=== PATIENT | female | born 1950 | race Caucasian/White ===

== ENCOUNTER → 2024-02-12 | Outpatient (CLI) | payer MEDICARE, SELFPAY ==
[2024-02-12 08:57] LABS: Collection Type, Urine Clean Catch
[2024-02-12 09:13] LABS: Basophils # (Auto) 0.1 Thou/mm3 (0.0-0.2); Basophils % (Auto) 1 % (0-2.5); Eosinophils # (Auto) 0.2 Thou/mm3 (0.0-0.5); Eosinophils % (Auto) 3 % (0-10); Hematocrit 35.1 % (36.0-46.0); Hemoglobin 11.7 g/dL (12.0-16.0); Immature Granulocytes % (Auto) 1 % (0-0); Immature Granulocytes Auto 0.05 Thou/mm3 (0.00-0.00); Lymphocytes # (Auto) 2.7 Thou/mm3 (1.0-4.8); Lymphocytes % (Auto) 39 % (10-50); Mean Corpuscular HGB Conc 33.3 g/dl (31.0-37.0); Mean Corpuscular Volume 87 fL (80-100); Monocytes # (Auto) 0.4 Thou/mm3 (0.0-0.8); Monocytes % (Auto) 6 % (0-12); Neutrophils # (Auto) 3.5 Thou/mm3 (1.8-7.7); Neutrophils % (Auto) 52 % (37-80); Nucleated Red Blood Cell % 0 /100 WBC (0); Platelet Count 268 Thou/mm3 (140-440); RDW Standard Deviation 39.3 fL (36.4-46.3); Red Blood Count 4.03 Miln/mm3 (4.00-5.20); White Blood Count 6.9 Thou/mm3 (3.6-11.0)
[2024-02-12 09:24] LABS: Bacteria,Urine 4+; Bilirubin,Urine Negative (Negative); Blood,Urine Trace (Negative); Color,Urine Lt-Yellow (Lt Yel-Yel); Glucose, Urine Negative (Negative); Ketones,Urine Negative (Negative); Leukocyte Esterase,Urine Positive (Negative); Nitrite,Urine Negative (Negative); Protein,Urine Trace (Neg - Trace); RBC,Urine 4 /hpf (0-3); Specific Gravity,Urine 1.013 (1.001-1.035); Squamous Epithelial Cell,Urine 1 /hpf (0-5); Urobilinogen,Urine Negative mg/dL (0.0-1.0); WBC,Urine 209 /hpf (0-5)
[2024-02-12 09:25] LABS: Clarity,Urine Hazy (Clear/Hazy); Culture Indicated,Urine Yes
[2024-02-12 09:27] LABS: Glucose Estimated Average 146 mg/dL (80-131); Hemoglobin A1C 6.7 % Hgb (4.8-6.0)
[2024-02-12 09:31] LABS: Alanine Aminotransferase 12 U/L (10-49); Albumin, Serum 4.7 gm/dL (3.4-4.8); Alkaline Phosphatase 48 U/L (46-116); Anion Gap 9 (7-16); Aspartate Amino Transferase 13 U/L (0-34); BUN/Creatinine Ratio 26 Ratio (12-20); Bilirubin,Total 0.6 mg/dL (0.3-1.2); Blood Urea Nitrogen 31 mg/dL (9-23); Calcium 9.9 mg/dL (8.3-10.6); Calcium (Corrected) 9.9 mg/dL (8.5-10.1); Carbon Dioxide 24.2 mMol/L (20.0-31.0); Cardiac Risk Estimate 4.9 RATIO (3.7-5.6); Chloride 105 mMol/L (98-107); Cholesterol 272 mg/dL (132-200); Creatinine (Component) 1.2 mg/dL (0.6-1.3); Globulin 2.3 gm/dL (2.3-3.5); Glucose 155 mg/dL (74-106); HDL Cholesterol 55 mg/dL (40-60); LDL Cholesterol,Calculated 165 mg/dL (0-130); Osmolality,Calculated 285 (275-295); Potassium 5.2 mMol/L (3.4-5.1); Sodium 138 mMol/L (136-145); Thyroid Stimulating Hormone 1.59 uIU/mL (0.55-4.78); Triglycerides 262 mg/dL (30-150); Vitamin B12 313 pg/mL (211-911); Vitamin D 25 Hydroxy Total 33.9 ng/mL (7.3-40.2); eGFR 48 See Note
[2024-02-12 09:43] LABS: Creatinine MALB Rnd Ur 74 mg/dL (30-125); Microalbumin Creat Ratio 126 mg/gCrea (<30); Microalbumin, Random Urine 93 mg/L (0-300)
== END | disposition home or self-care (01) ==
LOC: COPL 08:27
PROVIDERS: PCP Family Medicine; Referring Provider Physician Assistant; Visit Provider Physician Assistant
DX: E11.9 Type 2 diabetes mellitus without complications (principal); I10 Essential (primary) hypertension; E55.9 Vitamin D deficiency, unspecified; E78.5 Hyperlipidemia, unspecified
CPT/HCPCS: 36415; 80053; 80061; 81001; 82043; 82306; 82570; 82607; 83036; 84443; 85025; 87077; 87086; 87186

== ENCOUNTER → 2024-03-03 | Outpatient (CLI) | payer MEDICARE, SELFPAY ==
[2024-03-03 12:50] LABS: Alanine Aminotransferase 21 U/L (10-49); Albumin, Serum 4.5 gm/dL (3.4-4.8); Alkaline Phosphatase 44 U/L (46-116); Anion Gap 8 (7-16); Aspartate Amino Transferase 18 U/L (0-34); BUN/Creatinine Ratio 19 Ratio (12-20); Bilirubin,Total 0.3 mg/dL (0.3-1.2); Blood Urea Nitrogen 23 mg/dL (9-23); Carbon Dioxide 24.6 mMol/L (20.0-31.0); Chloride 109 mMol/L (98-107); Creatinine (Component) 1.2 mg/dL (0.6-1.3); Globulin 2.2 gm/dL (2.3-3.5); Glucose 110 mg/dL (74-106); Osmolality,Calculated 287 (275-295); Potassium 5.3 mMol/L (3.4-5.1); Sodium 142 mMol/L (136-145); Total Protein 6.7 gm/dL (5.7-8.2); eGFR 48 See Note
== END | disposition home or self-care (01) ==
LOC: COPL 11:15
PROVIDERS: PCP Physician Assistant; Referring Provider Physician Assistant; Visit Provider Physician Assistant
DX: E87.5 Hyperkalemia (principal)
CPT/HCPCS: 36415; 80053

== ENCOUNTER → 2024-03-06 | Outpatient (CLI) | payer MEDICARE, SELFPAY ==
[2024-03-06 15:59] LABS: Collection Type, Urine Clean Catch
[2024-03-06 17:20] LABS: Bilirubin,Urine Negative (Negative); Blood,Urine Negative (Negative); Clarity,Urine Clear (Clear/Hazy); Color,Urine Lt-Yellow (Lt Yel-Yel); Glucose, Urine Negative (Negative); Ketones,Urine Negative (Negative); Leukocyte Esterase,Urine Negative (Negative); Nitrite,Urine Negative (Negative); PH,Urine 5.5 (5.0-7.0); Protein,Urine Negative (Neg - Trace); RBC,Urine 1 /hpf (0-3); Specific Gravity,Urine 1.013 (1.001-1.035); Squamous Epithelial Cell,Urine 1 /hpf (0-5); Urobilinogen,Urine Negative mg/dL (0.0-1.0); WBC,Urine 3 /hpf (0-5)
== END | disposition home or self-care (01) ==
LOC: SLDO 15:46
PROVIDERS: PCP Physician Assistant; Referring Provider Physician Assistant; Visit Provider Physician Assistant
DX: N39.0 Urinary tract infection, site not specified (principal)
CPT/HCPCS: 81001; 87086

== ENCOUNTER → 2024-03-24 | Outpatient (CLI) | payer MEDICARE, SELFPAY ==
[2024-03-24 14:42] LABS: Alanine Aminotransferase 22 U/L (10-49); Albumin, Serum 4.4 gm/dL (3.4-4.8); Albumin/Globulin Ratio 1.9 (1.2-2.2); Alkaline Phosphatase 43 U/L (46-116); Anion Gap 12 (7-16); Aspartate Amino Transferase 22 U/L (0-34); BUN/Creatinine Ratio 18 Ratio (12-20); Bilirubin,Total 0.7 mg/dL (0.3-1.2); Blood Urea Nitrogen 20 mg/dL (9-23); Calcium 10.1 mg/dL (8.3-10.6); Calcium (Corrected) 10.1 mg/dL (8.5-10.1); Carbon Dioxide 25.1 mMol/L (20.0-31.0); Chloride 106 mMol/L (98-107); Creatinine (Component) 1.1 mg/dL (0.6-1.3); Globulin 2.3 gm/dL (2.3-3.5); Glucose 97 mg/dL (74-106); Osmolality,Calculated 287 (275-295); Sodium 143 mMol/L (136-145); Total Protein 6.7 gm/dL (5.7-8.2); eGFR 53 See Note
== END | disposition home or self-care (01) ==
LOC: COPL 13:33
PROVIDERS: PCP Family Medicine; Referring Provider Physician Assistant; Visit Provider Physician Assistant
DX: E87.5 Hyperkalemia (principal)
CPT/HCPCS: 36415; 80053

== ENCOUNTER → 2024-03-25 | Outpatient (CLI) | payer MEDICARE, SELFPAY ==
--- NOTE | 2024-03-25 12:25 | XR_ITS ---
Examination: Bone densitometry Date and time of exam:March 17, 2024 1241 hours INDICATIONS: Menopause age 45 postmenopausal knee fracture, diabetic, vitamin D 5 years Technique: Lumbar spine and hip total bone mineralization values of an calculated. Peak reference and age match control results have been displayed. Findings: Lumbar spine total bone mineralization is1.031 gm/cm2. This is 0.1 standard deviations below peak reference. This is 2.2 standard deviations above age-matched controls. Hip total bone mineralization is 0.814 gm/cm2 This is 1.1 standard deviations below peak reference. This is 0.7 standard deviations above age-matched controls Impression: There is normal mineralization based on lumbar spine measurements. There is osteopenia based on hip measurements Lumbar mineralization is increased 3.8% compared with September 03, 2003 Hip mineralization is decreased 7.7% compared with September 03, 2003
--- NOTE | 2024-03-25 13:00 | XR_ITS ---
Examination: Screening digital mammography, bilateral Computer aided detection 3-D breast Tomosynthesis, bilateral Date and time of exam: h Indication: Screening Technique: Nonmagnified MLO, CC views of the breasts to been obtained, reconstructed from 3-D Tomosynthesis images. R2 computer aided detection program utilized for evaluation of suspicious masses and/or abnormal calcifications. 3-D Tomosynthesis images obtained. Findings: Scattered areas of fibroglandular density Highly suspicious spiculated 20 mm lesion upper inner left breast 10 mm focal asymmetry 12:00 position left breast anterior depth Impression: BI-RADS Category 0: Incomplete: Need additional imaging evaluation 20 mm highly suspicious spiculated mass inner upper left breast, recommend follow-up spot tomographic views of 10 mm focal asymmetry 12:00 position left breast, recommend follow-up spot tomographic views Recommend bilateral breast sonography follow-up to complete the workup
== END | disposition home or self-care (01) ==
PROVIDERS: PCP Physician Assistant; Referring Provider Physician Assistant; Visit Provider Physician Assistant
DX: Z12.31 Encounter for screening mammogram for malignant neoplasm of breast (principal); N63.22 Unspecified lump in the left breast, upper inner quadrant; N64.89 Other specified disorders of breast; M85.89 Other specified disorders of bone density and structure, multiple sites
CPT/HCPCS: 77063; 77067; 77080

== ENCOUNTER → 2024-04-28 | Outpatient (CLI) | payer MEDICARE, SELFPAY ==
--- NOTE | 2024-04-28 09:00 | XR_ITS ---
Examination: Breast ultrasound complete, bilateral Date and time of exam: April 28, 2024 0848 hours INDICATIONS: Mammogram March 17, 2024 spiculated mass inner upper left breast Technique: Real-time grayscale ultrasonographic imaging bilateral breasts, including all 4 quadrants as well as nipple retroareolar and axillary regions. Findings: Sonographic images right breast No cystic or solid mass Sonographic images left breast 5:00 oval mass indistinct margins 9 x 5 x 8 mm 10:00 oval mass within wide spiculated margins 17 x 18 x 17 mm IMPRESSION: BI-RADS Category 4: Suspicious for malignancy Suspicious masses 5 and 10:00 position left breast, biopsy both nodules is needed to exclude breast carcinoma, these nodules are amenable to ultrasound-guided breast biopsy for diagnosis
--- NOTE | 2024-04-28 10:00 | XR_ITS ---
Examination: Diagnostic digital mammography, unilateral, left Computer aided detection 3-D breast Tomosynthesis, unilateral Date and time of exam: April 28, 2024 0910 hours INDICATIONS: Mammogram March 25, 2024 spiculated mass inner upper left breast, 10 mm focal asymmetry 12:00 position left breast Technique: Nonmagnified MLO, CC views of the left breast have been obtained, reconstructed from 3-D Tomosynthesis images. R2 computer aided detection program utilized for evaluation of suspicious masses and/or abnormal calcifications. 3-D Tomosynthesis images obtained. Findings: Scattered areas of fibroglandular density Spiculated mass is confirmed in the inner upper left breast Please see the left breast sonogram report today indicating 10:00 and 5:00 suspicious masses Impression: BI-RADS category 4: Suspicious for malignancy Suspicious masses 10:00 5:00 position left breast, both require biopsy to exclude breast carcinoma These masses are amenable to ultrasound-guided biopsy for diagnosis
== END | disposition home or self-care (01) ==
LOC: CDIM 08:35
PROVIDERS: Referring Provider Physician Assistant; Visit Provider Physician Assistant
DX: R92.342 Mammographic extreme density, left breast (principal); N63.22 Unspecified lump in the left breast, upper inner quadrant; N63.23 Unspecified lump in the left breast, lower outer quadrant
CPT/HCPCS: 76641; 77061; 77065; G0279

== ENCOUNTER → 2024-05-28 | Outpatient (CLI) | payer MEDICARE, SELFPAY ==
[2024-05-28 13:09] LABS: Basophils # (Auto) 0.1 Thou/mm3 (0.0-0.2); Basophils % (Auto) 1 % (0-2.5); Eosinophils # (Auto) 0.1 Thou/mm3 (0.0-0.5); Eosinophils % (Auto) 1 % (0-10); Hematocrit 35.1 % (36.0-46.0); Hemoglobin 11.9 g/dL (12.0-16.0); Immature Granulocytes % (Auto) 1 % (0-0); Immature Granulocytes Auto 0.05 Thou/mm3 (0.00-0.00); Lymphocytes # (Auto) 2.3 Thou/mm3 (1.0-4.8); Lymphocytes % (Auto) 23 % (10-50); Mean Corpuscular HGB Conc 33.9 g/dl (31.0-37.0); Mean Corpuscular Hemoglobin 29.4 pg (25.0-35.0); Mean Corpuscular Volume 87 fL (80-100); Monocytes # (Auto) 0.5 Thou/mm3 (0.0-0.8); Monocytes % (Auto) 5 % (0-12); Neutrophils # (Auto) 6.9 Thou/mm3 (1.8-7.7); Neutrophils % (Auto) 69 % (37-80); Nucleated Red Blood Cell % 0 /100 WBC (0); Platelet Count 279 Thou/mm3 (140-440); RDW Standard Deviation 40.9 fL (36.4-46.3); Red Blood Count 4.05 Miln/mm3 (4.00-5.20)
[2024-05-28 13:20] LABS: Glucose Estimated Average 134 mg/dL (80-131); Hemoglobin A1C 6.3 % Hgb (4.8-6.0)
[2024-05-28 13:28] LABS: Alanine Aminotransferase 18 U/L (10-49); Albumin, Serum 4.5 gm/dL (3.4-4.8); Albumin/Globulin Ratio 1.9 (1.2-2.2); Alkaline Phosphatase 42 U/L (46-116); Anion Gap 9 (7-16); Aspartate Amino Transferase 21 U/L (0-34); BUN/Creatinine Ratio 18 Ratio (12-20); Bilirubin,Total 0.8 mg/dL (0.3-1.2); Blood Urea Nitrogen 22 mg/dL (9-23); Calcium 9.9 mg/dL (8.3-10.6); Calcium (Corrected) 9.9 mg/dL (8.5-10.1); Chloride 107 mMol/L (98-107); Creatinine (Component) 1.2 mg/dL (0.6-1.3); Globulin 2.4 gm/dL (2.3-3.5); Glucose 124 mg/dL (74-106); Osmolality,Calculated 281 (275-295); Sodium 139 mMol/L (136-145); Total Protein 6.9 gm/dL (5.7-8.2); eGFR 48 See Note
== END | disposition home or self-care (01) ==
LOC: COPL 12:24
PROVIDERS: PCP Family Medicine; Referring Provider Registered Nurse; Visit Provider Registered Nurse
DX: E11.9 Type 2 diabetes mellitus without complications (principal); D64.9 Anemia, unspecified
CPT/HCPCS: 36415; 80053; 83036; 85025

== ENCOUNTER → 2024-06-13 | Outpatient (CLI) | payer MEDICARE, SELFPAY ==
[2024-06-13 11:29] LABS: Basophils # (Auto) 0.1 Thou/mm3 (0.0-0.2); Basophils % (Auto) 1 % (0-2.5); Eosinophils # (Auto) 0.2 Thou/mm3 (0.0-0.5); Eosinophils % (Auto) 3 % (0-10); Hematocrit 31.6 % (36.0-46.0); Hemoglobin 10.2 g/dL (12.0-16.0); Immature Granulocytes % (Auto) 1 % (0-0); Immature Granulocytes Auto 0.05 Thou/mm3 (0.00-0.00); Lymphocytes # (Auto) 2.1 Thou/mm3 (1.0-4.8); Lymphocytes % (Auto) 29 % (10-50); Mean Corpuscular HGB Conc 32.3 g/dl (31.0-37.0); Mean Corpuscular Hemoglobin 28.7 pg (25.0-35.0); Mean Corpuscular Volume 89 fL (80-100); Monocytes # (Auto) 0.5 Thou/mm3 (0.0-0.8); Monocytes % (Auto) 7 % (0-12); Neutrophils # (Auto) 4.5 Thou/mm3 (1.8-7.7); Neutrophils % (Auto) 61 % (37-80); Nucleated Red Blood Cell % 0 /100 WBC (0); Platelet Count 263 Thou/mm3 (140-440); RDW Standard Deviation 41.1 fL (36.4-46.3); Red Blood Count 3.56 Miln/mm3 (4.00-5.20); White Blood Count 7.5 Thou/mm3 (3.6-11.0)
[2024-06-13 11:35] LABS: Glucose Estimated Average 140 mg/dL (80-131); Hemoglobin A1C 6.5 % Hgb (4.8-6.0)
[2024-06-13 11:59] LABS: Alanine Aminotransferase 12 U/L (10-49); Albumin, Serum 4.2 gm/dL (3.4-4.8); Alkaline Phosphatase 39 U/L (46-116); Anion Gap 8 (7-16); Aspartate Amino Transferase 15 U/L (0-34); BUN/Creatinine Ratio 17 Ratio (12-20); Bilirubin,Direct 0.1 mg/dL (0.0-0.3); Bilirubin,Total 0.6 mg/dL (0.3-1.2); Blood Urea Nitrogen 20 mg/dL (9-23); Calcium 9.4 mg/dL (8.3-10.6); Carbon Dioxide 26.6 mMol/L (20.0-31.0); Cardiac Risk Estimate 3.4 RATIO (3.7-5.6); Chloride 110 mMol/L (98-107); Cholesterol 216 mg/dL (132-200); Creatinine (Component) 1.2 mg/dL (0.6-1.3); Free T4 (Free Thyroxine) 1.05 ng/dL (0.89-1.76); Glucose 133 mg/dL (74-106); HDL Cholesterol 63 mg/dL (40-60); LDL Cholesterol,Calculated 122 mg/dL (0-130); Osmolality,Calculated 293 (275-295); Potassium 4.4 mMol/L (3.4-5.1); Sodium 145 mMol/L (136-145); Thyroid Stimulating Hormone 1.25 uIU/mL (0.55-4.78); Total Protein 6.5 gm/dL (5.7-8.2); Triglycerides 155 mg/dL (30-150); eGFR 48 See Note
== END | disposition home or self-care (01) ==
LOC: COPL 10:06
PROVIDERS: PCP Physician Assistant; Referring Provider Internal Medicine Cardiovascular Disease; Visit Provider Internal Medicine Cardiovascular Disease
DX: I10 Essential (primary) hypertension (principal); E78.2 Mixed hyperlipidemia; E13.9 Other specified diabetes mellitus without complications; I20.9 Angina pectoris, unspecified
CPT/HCPCS: 36415; 80048; 80061; 80076; 83036; 84439; 84443; 85025

== ENCOUNTER → 2024-07-07 | Outpatient (CLI) | payer MEDICARE, SELFPAY ==
--- NOTE | 2024-07-07 15:45 | XR_ITS ---
Examination: Retroperitoneal ultrasound, complete Technique: Multiple high resolution grayscale images of the retroperitoneum obtained, including kidneys and bladder. Exam date and time:July 07, 2024 1554 hours INDICATIONS: Diagnosis chronic kidney disease stage III FINDINGS: Right kidney 13.2 cm cortex 1.4 cm Advanced right hydronephrosis Left kidney 10.8 cm cortex 2.6 cm Advanced right hydronephrosis Moderate bilateral renal parenchymal scar formation No bladder mass or bladder calculi Bladder prevoid volume 199 cc postvoid volume 83 cc IMPRESSION: Advanced bilateral hydronephrosis CT scan abdomen pelvis without intravenous contrast follow-up
[2024-07-07 17:32] LABS: Basophils % (Auto) 0 % (0-2.5); Eosinophils # (Auto) 0.2 Thou/mm3 (0.0-0.5); Eosinophils % (Auto) 2 % (0-10); Hematocrit 32.5 % (36.0-46.0); Hemoglobin 10.7 g/dL (12.0-16.0); Immature Granulocytes % (Auto) 1 % (0-0); Immature Granulocytes Auto 0.08 Thou/mm3 (0.00-0.00); Lymphocytes # (Auto) 3.1 Thou/mm3 (1.0-4.8); Lymphocytes % (Auto) 32 % (10-50); Mean Corpuscular HGB Conc 32.9 g/dl (31.0-37.0); Mean Corpuscular Hemoglobin 29.2 pg (25.0-35.0); Mean Corpuscular Volume 89 fL (80-100); Monocytes # (Auto) 0.6 Thou/mm3 (0.0-0.8); Monocytes % (Auto) 6 % (0-12); Neutrophils # (Auto) 5.7 Thou/mm3 (1.8-7.7); Neutrophils % (Auto) 59 % (37-80); Nucleated Red Blood Cell % 0 /100 WBC (0); Platelet Count 282 Thou/mm3 (140-440); RDW Standard Deviation 40.6 fL (36.4-46.3); Red Blood Count 3.67 Miln/mm3 (4.00-5.20); White Blood Count 9.8 Thou/mm3 (3.6-11.0)
[2024-07-07 17:48] LABS: Ferritin 133 ng/mL (7.3-270.7); Iron 47 mcg/dL (50-170); Vitamin B12 310 pg/mL (211-911)
== END | disposition home or self-care (01) ==
LOC: CDIM 15:37 → COPL 16:16
PROVIDERS: PCP Physician Assistant; Referring Provider Physician Assistant; Visit Provider Radiology Diagnostic Radiology
DX: N13.30 Unspecified hydronephrosis (principal); D51.9 Vitamin B12 deficiency anemia, unspecified
CPT/HCPCS: 36415; 76770; 82607; 82728; 83540; 85025

== ENCOUNTER → 2024-07-15 | Outpatient (CLI) | payer MEDICARE, SELFPAY ==
--- NOTE | 2024-07-15 09:00 | XR_ITS ---
Examination: CT abdomen and pelvis without contrast. Coronal 3-D reconstructions. Sagittal 2-D reconstructions. Date and time of exam:July 15, 2024 0852 hours Comparison PET/CT scan January 05, 2022 INDICATIONS: Diagnosis malignant melanoma, renal sonogram July 07, 2024 advanced bilateral hydronephrosis CTDI: vol (mGy): 8.03 DLP: (mGycm): 434 Technique: Axial images of the abdomen have been obtained, 3 mm slice thickness Intravenous contrast material has not been administered. Low dose protocols were performed. One or more of the following dose reduction techniques were used; automated exposure control, adjustment of the mA and/or KV according to patient size, use of iterative reconstruction technique. Findings: No focal liver or splenic lesions 4 mm pulmonary nodule left lower lobe No gallstones No pancreatic or adrenal mass Moderate to advanced bilateral hydronephrosis, no renal calculi No ureteral calculi Aorta normal size No abdominal or pelvic significant lymphadenopathy Normal appendix No bowel obstruction or diverticulitis Urinary bladder intact IMPRESSION: Moderate to advanced bilateral hydronephrosis, no renal or ureteral calculi, recommend urology consultation
== END | disposition home or self-care (01) ==
PROVIDERS: PCP Physician Assistant; Referring Provider Physician Assistant; Visit Provider Physician Assistant
DX: N13.39 Other hydronephrosis (principal)
CPT/HCPCS: 74176

== ENCOUNTER → 2024-08-14 | Outpatient (BNVA) | payer MEDICARE, SELFPAY | END | disposition home or self-care (01) | PROVIDERS: PCP Physician Assistant; Referring Provider Physician Assistant; Visit Provider Urology | DX: N81.10 Cystocele, unspecified (principal); N13.30 Unspecified hydronephrosis; I12.9 Hypertensive chronic kidney disease with stage 1 through stage 4 chronic kidney disease, or unspecified chronic kidney disease; E11.22 Type 2 diabetes mellitus with diabetic chronic kidney disease; N18.30 Chronic kidney disease, stage 3 unspecified; I25.10 Atherosclerotic heart disease of native coronary artery without angina pectoris; E66.9 Obesity, unspecified; Z68.26 Body mass index [BMI] 26.0-26.9, adult; E78.00 Pure hypercholesterolemia, unspecified; K21.9 Gastro-esophageal reflux disease without esophagitis | CPT/HCPCS: 81003; 99203; 99212; G0463 ==

== ENCOUNTER 2024-09-10 07:20 | Day surgery (SDC) | payer MEDICARE, SELFPAY ==
--- NOTE | 2024-09-09 09:55 | EKG_ITS ---
[facility] Test Date: 2024-09-09 Pat Name: SG ALFREDO Department: Room: - Gender: Female Extension Course Coordinator: ROM : 1950 Requested By: Jesus Alberto Reis Order Number: [id number] Reading MD: Jesus Alberto Reis Measurements Intervals [place] Rate: 66 P: 52 DE: 143 QRS: -2 QRSD: 88 T: -20 QT: 368 QTc: 386 Interpretive Statements SINUS RHYTHM NONSPECIFIC ST & T-WAVE ABNORMALITY Compared to ECG 06/21/2017 09:37:34 No significant changes /store/S0/[id number]/ecg/[id number].pdf
[2024-09-09 10:46] VITALS: BMI 28.8
[2024-09-09 12:35] LABS: Alanine Aminotransferase 14 U/L (10-49); Albumin, Serum 4.4 gm/dL (3.4-4.8); Albumin/Globulin Ratio 1.7 (1.2-2.2); Alkaline Phosphatase 40 U/L (46-116); Anion Gap 9 (7-16); Aspartate Amino Transferase 20 U/L (0-34); BUN/Creatinine Ratio 15 Ratio (12-20); Bilirubin,Total 0.8 mg/dL (0.3-1.2); Blood Urea Nitrogen 18 mg/dL (9-23); Calcium 9.8 mg/dL (8.3-10.6); Calcium (Corrected) 9.8 mg/dL (8.5-10.1); Carbon Dioxide 25.1 mMol/L (20.0-31.0); Chloride 108 mMol/L (98-107); Creatinine (Component) 1.2 mg/dL (0.6-1.3); Estimated Creatinine Clearance 38.0 mL/min (>60); Globulin 2.6 gm/dL (2.3-3.5); Glucose 144 mg/dL (74-106); Osmolality,Calculated 288 (275-295); Potassium 4.4 mMol/L (3.4-5.1); Sodium 142 mMol/L (136-145); Total Protein 7.0 gm/dL (5.7-8.2); eGFR 48 See Note
[2024-09-10] VITALS (8 sets, daily range): BP systolic 133–158; BP diastolic 69–95; PULSE 65–89; RESP 12–19; TEMP 36.4–36.8; O2SAT 95–100; BMI 28.7
[2024-09-10] MEDS: RINGERS LACTATED 1000 ML 1,000 ML 20 ML IV (08:16)
--- NOTE | 2024-09-10 09:00 | XR_ITS ---
Examination: Bilateral retrograde pyelograms with without KUB Fluoroscopy 3 spot fluoroscopic abdomen films Date and time: September 10, 2024 1143 hours INDICATIONS: Diagnosis malignant melanoma, moderate to advanced bilateral hydronephrosis on CT study of the abdomen and pelvis July 15, 2024 TECHNIQUE AND FINDINGS: 3 spot fluoroscopic abdomen films obtained Contrast noted in dilated ureters Fluoroscopy 19.7 seconds radiation dose 4.97 milligray IMPRESSION: Bilateral retrograde study as above
--- NOTE | 2024-09-10 11:54 | ESOP_ITS ---
Date of Procedure 09/10/24 Pre Op Diagnosis Complete vaginal vault prolapse, chronic renal insufficiency Post Op Diagnosis Same plus bilateral hydronephrosis Procedure Cystoscopic examination bilateral retrograde pyelogram placement of vaginal pessary Findings Vaginal vault prolapse and bilateral hydronephrosis Procedure Description This is a 74-year-old female she was seen by me in urology office she has complete vaginal vault prolapse and renal insufficiency she was recommended above procedure procedure and complications were discussed with the patient in great detail informed consent is obtained Patient was brought to the operating room in a satisfactory condition after appropriate premedication she was appropriately identified by surgeon and operating room staff site scope and indications of the procedure were reconfirmed with the patient. General anesthesia was given uneventfully patient was positioned in a dorsolithotomy position parts were prepped and draped in the usual sterile fashion 2% lidocaine was instilled into the urethra after I was able to reduce the cystocele rectocele. 21 cystoscope was used to do the cy stoscopic examination. At this time patient received perioperative antibiotics. Examination of bladder in all the quadrant was carried out there were coarse bladder trabeculation. Both ureteral orifices were identified. I passed the open-ended Pollick catheter on the left side under fluoroscopic examination retrograde pyelogram was performed this revealed hydronephrosis with dilated ureter up to the bladder left side similar procedure was repeated on the opposite side and there was a hydroureteronephrosis right side. This was as a result of complete vaginal vault prolapse which was causing double-J kinking of the ureters and causing your ureteral obstruction. Next instrument was withdrawn gently and vaginal pessary was placed patient after having tolerated the procedure well was discharged to the recovery room in a satisfactory condition to be followed in urology office Anesthesia GETA Pathology / specimen None Estimated Blood Loss 0.2 Condition Stable Disposition PACU Surgeon Anne Hart MD Surgical Staff Operation Date: 09/10/24 09:30 <No data on this case meets the specified criteria>
--- NOTE | 2024-09-10 12:02 | SUR.PHASEI ---
pt arrived to PACU via gurney drowsy but arouses to voice, breathing unlabored, report from Sonido LAL and Dr Cho
--- NOTE | 2024-09-10 12:20 | SUR.PHASEII ---
1220 Report received from Yumiko Velasquez RN
--- NOTE | 2024-09-10 12:20 | SUR.PHASEII ---
report to Yumiko Singletary RN
--- NOTE | 2024-09-10 12:30 | SUR.PHASEII ---
1230 Patient had incontinent episode, patient linen clean, gown changed and pericare provided to patient, purewick in place
--- NOTE | 2024-09-10 13:09 | SUR.PHASEII ---
1309 Patient meets discharge criteria from recovery, awake and alert, breathing unlabored, vital signs stable, denies pain, drinking water; denies nausea, voided in the restroom prior to discharge, assisted with dressing into her clothing by this play writer, discharge instructions given to patient and patients , signed discharge instructions. Patient given all her belongings prior to discharge, transported via wheelchair and left in a private vehicle.
== END 2024-09-10 13:09 | disposition home or self-care (01) ==
PROVIDERS: Anesthesiology; PCP Family Medicine; Referring Provider Urology; Visit Provider Urology
PROC: 0TJB8ZZ Inspection of Bladder, Via Natural or Artificial Opening Endoscopic (ICD-10-PCS; CPT 52000; principal; 2024-09-10 09:15)
DX: N81.10 Cystocele, unspecified (principal); N18.9 Chronic kidney disease, unspecified; N13.30 Unspecified hydronephrosis; Z01.810 Encounter for preprocedural cardiovascular examination
CPT/HCPCS: 52005; 57160; 36415; 74420; 80053; 93005; A4217; A4649; C1769; C1894; J0131; J1100; J1580; J2250; J2405; J2704; J3010; J3490; J7120

== ENCOUNTER 2024-09-18 08:51 | Outpatient (RCR) | payer MEDICARE, SELFPAY ==
--- NOTE | 2024-09-18 10:59 | CTCCONSULT_ITS ---
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 Patient had brain metastasis as well as lung mets. Patient was treated with immunotherapy in the past. Patient has been following at [facility] and now want to transfer her care back. Patient also completed her bone density outside. She also report history of pernicious anemia She is not taking B12 She says she feels weak and tired and dizzy OTHER MEDICAL HISTORY/CONDITIONS: Left breast ductal carcinoma - 05/15/24 Stage IV melanoma melanoma right eyelid and conjuctival to barin and lung - dx 05/14/2015 HTN Diabetes Anemia Left breast lumpectomy - 07/24/24 Right craniotomy with rescetion frontal metastatic melanoma - 08/14/2017 Surgery right eyelid - 2015 Surgery right eyelid - 2012 FAMILY HISTORY: Cancer History:?Mat grandfather - liver - dx 60's SOCIAL HISTORY: Occupational?History:?Retired Education?Level:?Completed 8th grade Marital?Status:? Tobacco?Use:?Denies ETOH?Use:?Denies Drug?Note:?Denies Social?History?Note:?Lives?with? [employer] HISTORY: MEDICATIONS: 1. Arimidex - 1 mg 1 tab Daily 2. atenolol - 50 mg Twice a Day 3. Calcium 600 - 600 mg 1 tab Daily 4. cyanocobalamin (vitamin B-12) - 1,000 mcg 1 tab Daily 5. ferrous sulfate - 325 mg (65 mg iron) 1 tab Daily 6. levetiracetam - 500 mg 1 tab Twice a Day 7. lisinopril - 20 mg 1 tab Daily 8. metFORMIN - 1,000 mg 1 tab Daily 9. metFORMIN - 500 mg 1 tab Every day before sleep 10. metformin - 500 mg As directed 11. Retaine PM - 80-20 % Every day before sleep 12. Super B Complex - 1 tab Daily 13. traZODone - 50 mg 50 mg Every day before sleep 14. Vitamin D3 - 1,000 unit 1 tab Daily Medications Last Reconciled by Clair Lopes RN on 09/18/2024 ALLERGIES: BUSPIRONE HCL REVIEW OF SYSTEMS: A complete 14-point review of systems was performed and is negative except as noted in interval history. PHYSICAL EXAMINATION: VITAL SIGNS: Temperature?98.5, B/P?150/84, Height?62?inches, Oxygen?Saturation?96% Weight?156?lbs PAIN: 0 - No pain ECOG Performance Status: 1 - Symptomatic; ambulatory; restricted in strenuous activity GENERAL APPEARANCE: Appears well, in no apparent distress, appropriately interactive. HEENT: Normocephalic, no temporal wasting, normal conjunctiva, no scleral icterus, normal hearing, lips without lesions, neck normal range of motion. CARDIOVASCULAR: Not assessed. PULMONARY: Normal respiratory effort, no respiratory distress or use of accessory muscles, speaking in full sentences, no tachypnea. EXTREMITIES: No pedal edema or cyanosis. SKIN: Normal skin appearance. NEUROLOGIC: Alert and oriented x4. PSHYCHIATRIC: Appropriate affect, mood normal, behavior normal, intact thought and speech. LABORATORY DATA: I have personally reviewed and interpreted each of the patient?s relevant lab tests, abnormal findings are below: Date 06/13/24 07/07/24 09/09/24 ??WHITE?BLOOD?COUNT?(Thou/mm3) 7.5 9.8 ? ??RED?BLOOD?COUNT?(Miln/mm3) 3.56?L 3.67?L ? ??HEMOGLOBIN?(gm/dl) 10.2?L 10.7?L ? ??HEMATOCRIT?(%) 31.6?L 32.5?L ? ??PLATELET?COUNT?(Thou/mm3) 263 282 ? ??NEUTROPHILS?%,?AUTO?(%) 61 59 ? ??LYMPH?%,?AUTO?(%) 29 32 ? ??NEUTROPHILS,?AUTO?(Thou/mm3) 4.5 5.7 ? ??GLUCOSE,RANDOM?(mg/dL) ? ? 144?H ??BLOOD?UREA?NITROGEN?(mg/dL) ? ? 18 ??CREATININE?(mg/dL) ? ? 1.20 ??SODIUM?(mmol/L) ? ? 142 ??POTASSIUM?(mmol/L) ? ? 4.4 ??CHLORIDE?(mmol/L) ? ? 108?H ??CrCl?(CandG)?(ml/min) ? ? 45.65 ??AST/SGOT?(Unit/L) 15 ? 20 ??ALT/SGPT?(Unit/L) 12 ? 14 ??ALKALINE?PHOSPHATASE?(Unit/L) 39?L ? 40?L ??BILIRUBIN,?TOTAL?(mg/dL) 0.6 ? 0.8 ??PROTEIN?TOTAL?(gm/dl) 6.5 ? 7.0 ??ALBUMIN,?SERUM?(gm/dl) 4.2 ? 4.4 ??GLOBULIN?(gm/dl) ? ? 2.6 ??ALBUMIN/GLOBULIN?RATIO ? ? 1.7 ??CALCIUM,?SERUM?(mg/dL) ? ? 9.8 ??CALCIUM?SERUM?(CORRECTED)?(mg/dL) ? ? 9.8 ASSESSMENT/PLAN: #1 early stage breast cancer Patient had early stage breast cancer status postlumpectomy Will need antiendocrine therapy for at least 7 to 10 years Will start on Arimidex 1 mg tablet daily Advised to take calcium and vitamin D3 Follow-up on bone density results Will start Zometa once dental is cleared #2 malignant melanoma No recent imaging Will restage patient with PET CT scan #3 dizziness with a history of uneasiness anemia Patient had a change in gait and is complaining that she was diagnosed with pernicious anemia and need B12 as it injectable Will get levels Labs ordered of B12 folic acid CBC CMP Return to evaluate the labs and will order B12 ORDERS: Order # Description [id number] Initial PET/CT of Skull to Mid-Thigh [id number] Vitamin B-12 + Folic Acid; Serum + Ferritin + Iron Panel [id number] Follow Up 2 Months RETURN TO CLINIC: I reviewed the diagnosis, prognosis, and recommended treatment/procedure options with the patient (and/or their legal used equipment sales representative), including the potential benefits, risks, side effects and alternative therapies. We also discussed the option of no treatment and the possibility of clinical trial participation, if applicable. All questions were addressed, and they demonstrated understanding. They provided informed consent to proceed with the proposed plan of care. BILLING AND COMPLIANCE: I reviewed external records from providers outside my specialty as summarized above. I spent a total of 50 minutes on this patient?s care on the day of their visit excluding time spent related to any billed procedures. This time includes time spent with the patient as well as time spent documenting in the medical record, reviewing patients records and tests, obtaining history, placing orders, communicating with other healthcare professionals, counseling the patient, family or caregiver, and/or care coordination for the diagnoses above. Electronically Signed by: Jeremias Medellin MD T: 10:57 AM CC: Lang?Yoan,?, Catalina?Gregg,?MARGIE PCP: Lang Milton Referring: Tra Rapp This document was completed utilizing speech recognition software. Grammatical errors, random word insertions, pronoun errors, and incomplete sentences are an occasional consequence of this system due to software limitations, ambient noise, and hardware issues. Any formal questions or concerns about the content, text or information contained within the body of this dictation should be directly addressed to the provider for clarification.
== END 2024-09-25 23:59 | disposition home or self-care (01) ==
LOC: SCTC 08:51
PROVIDERS: PCP Physician Assistant; Referring Provider Surgery; Visit Provider Internal Medicine Hematology & Oncology
DX: C50.212 Malignant neoplasm of upper-inner quadrant of left female breast (principal); Z17.0 Estrogen receptor positive status [ER+]; Z17.21 Progesterone receptor positive status; Z17.32 Human epidermal growth factor receptor 2 negative status; Z90.12 Acquired absence of left breast and nipple; Z85.820 Personal history of malignant melanoma of skin; R42 Dizziness and giddiness; D64.9 Anemia, unspecified
CPT/HCPCS: 99213; G0463

== ENCOUNTER 2024-10-24 11:05 | Outpatient (RCR) | payer MEDICARE, SELFPAY ==
--- NOTE | 2024-09-30 16:53 | CTCCONSULT_ITS ---
[facility] [address], [place] [address] Consultation Note Date: 09/30/2024 MR#: [id number] Name: SG ALFREDO : 1950 Dx: C43.30 Malignant melanoma of unspecified part of face C50.212 Malignant neoplasm upper inner quadrant left breast Attending physician. Lang Milton MD Referring physician. Jeremias Medellin MD History of Present Illness: Patient with history of malignant melanoma stage IV with reported brain mets and lung mets treated with immunotherapy in the past at [facility] reportedly in remission. Recently had biopsy of the upper inner quadrant of her left breast, revealing ER/IL positive HER2/armaan negative invasive carcinoma of no special type ductal. Underwent partial mastectomy performed by Dr. Rapp on 07/24/2024. Invasive carcinoma of no special type ductal removed 18 x 15 x 12 mm with single focus of invasive carcinoma all margins negative for invasive carcinoma. No nodes submitted or found. ER IL positive HER2/armaan negative Ki67 8%. Saw medical oncologist Dr. Soares who has started her on Arimidex 1 tab a day. Referred for radiation. Oncology consultation. Past Medical History:1. History of stage IV metastatic melanoma treated with immunotherapy reportedly in remission, prior craniotomy for mets eyelid surgeries restaging with PET scan being planned. History of hypertension diabetes Meds. Arimidex atenolol calcium vitamin B12 iron levetiracetam lisinopril metformin Allergies buspirone Social History: Retired lives with Review of Systems: Noncontributory Physical Exam: General: Adequate nourished appearing lady no acute distress HEENT: Extraocular muscle intact no oral lesions no cervical or supraclavicular adenopathy CV: Left breast with well-healed scar inner quadrant ABD: Soft no organomegaly tenderness EXT: No sinus clubbing or edema. Assessment:1. T1c ER/IL positive HER2/armaan negative stage I left breast CA status post partial mastectomy performed by Dr. Rapp 07/24/2024. 2. Patient being treated with Arimidex under Dr. Medellin's direction. Also being followed for metastatic melanoma reportedly in remission. 3. Local breast radiation therapy 15 fractions over 3 weeks with a possible E boost depending on skin reaction was discussed with the patient. Consent signed side effects explained. 4. Thank you for allowing me to evaluate and manage this patient Cc: Lang Rapp MD Electronically signed by: Chepe Villalba MD, DABR 09/30/2024 4:51 PM
--- NOTE | 2024-09-30 16:54 | CTCTXPLN_ITS ---
[facility] [address] [place], [place] [address] Physician Clinical Treatment Planning Note Date of Service: 09/30/2024 Name: GS SAYDA StoddardB.: 1950 The patient has agreed to proceed with Radiation therapy. Tests and supporting medical records were interpreted to assist in defining the tumor location and extent of disease. Further imaging will be necessary to contour and delineate the volume to which the XRT will be provided. A. Treatment Intent: Curative B. Modality: Mixed C. Requested Technique: 3D D. Treatment Site: Left breast E. Critical structures to be contoured on plan: F. In order to accomplish this plan, I am ordering/Prescribing the followin. Simulations (s) will be performed to accomplish a reproducible treatment position, to determine optimal treatment portals/beam arrangements, to design beam modifying devices and verify treatment portals on patient prior to the commencement of Radiation Therapy. Left breast 2. Devices; for immobilization and beam shaping: Vac-Mel 3. CT Guidance for placement of XRT theodore Scan area: 4. Portal images Frequency: 5. Invivo transit dose measurement once per week on all VMAT patients. 6. Special Physics Consult Requested for: 7. Other requests: G. Dose Objectives: Curative Electronically signed by: Chepe Villalba M.D. 09/30/2024 4:52 PM
--- NOTE | 2024-09-30 16:56 | CTCTXPLNST_ITS ---
Radiation Oncology Treatment Planning Sheet Name: SG ALFREDO MR#: [id number] : 1950 Dx: C43.30 Malignant melanoma of unspecified part of face Date of Service: 09/30/2024 Account #: ?? Pt Treatment Intent: curative palliative other: Stage: Procedure CPT # Ordered Spec. Procedure 30729 Krishnamurthy Complex (set-up) 28713 L breast/ E boost 1 Krishnamurthy Simple 48784 1 IMRT Plan 76501 MLC Devices VMAT 27664 Krishnamurthy 3 D 56996 1 TRTMT dev Complex 51445 Vaklok/2tang/E boost 4 TRTMT dev simple 40891 1 Basic Sabino 56143 5 Special Dosimetry 11039 Spec Physics 58463 Port Films 44211 3 SRS Cranial/1FX 36167 SBR 5 FX or Less /ex: 5 = 5 fx 38746 IMRT Simple 84339 IMRT Complex 60484 IGRT 65584 Rad del com 6- 35565 Rad del com 11- 33387 5005 20 Cont Med Physics 58756 4 Treatment Planning 78474 1 Rad del com 20 mev 67753 Rad del inter 08-05 17791 Rad del inter 01-14 16127 Rad del simple 6- 84636 Rad del simple 01-14 27977 Special Port Plan 47511 TRTMT dev inter 05171 Isodose Complex 05195 Isodose simple 93919 Resp Motion Mgmt Simulation 93077 Placement of Fiducial Markers 66986 Electronically Signed By: Chepe Villalba MD, MEGAN 09/30/2024 4:54 PM
== END 2024-10-26 23:59 | disposition home or self-care (01) ==
LOC: SCTC 11:05
PROVIDERS: PCP Physician Assistant; Referring Provider Physician Assistant; Visit Provider Radiology Therapeutic Radiology
DX: Z51.0 Encounter for antineoplastic radiation therapy (principal); C50.212 Malignant neoplasm of upper-inner quadrant of left female breast; Z17.0 Estrogen receptor positive status [ER+]; Z17.21 Progesterone receptor positive status; Z17.32 Human epidermal growth factor receptor 2 negative status; Z90.12 Acquired absence of left breast and nipple; Z85.820 Personal history of malignant melanoma of skin; Z79.811 Long term (current) use of aromatase inhibitors
CPT/HCPCS: 77014; 77280; 77290; 77295; 77300; 77334; 77336; 77412; 99213; G0463

== ENCOUNTER 2024-11-13 13:34 | Outpatient (RCR) | payer MEDICARE, SELFPAY ==
--- NOTE | 2024-10-30 16:15 | CTCTRTNOTE_ITS ---
[facility] [address], [place] [address] Weekly Management Date: ?? Name: SG SAYDA Parisi.: 1950 [id number] A. Patient is currently at 1869 cGy. B. Patient is tolerating treatment well. C. Resume radiation therapy. Electronically signed by: Chepe Villalba M.D. 10/30/2024 4:12 PM
== END 2024-11-25 23:59 | disposition home or self-care (01) ==
LOC: SCTC 13:34
PROVIDERS: PCP Physician Assistant; Referring Provider Physician Assistant; Visit Provider Internal Medicine Hematology & Oncology
DX: Z51.0 Encounter for antineoplastic radiation therapy (principal); C50.212 Malignant neoplasm of upper-inner quadrant of left female breast; Z17.0 Estrogen receptor positive status [ER+]; Z17.21 Progesterone receptor positive status; Z17.32 Human epidermal growth factor receptor 2 negative status; L59.9 Disorder of the skin and subcutaneous tissue related to radiation, unspecified; Y84.2 Radiological procedure and radiotherapy as the cause of abnormal reaction of the patient, or of later complication, without mention of misadventure at the time of the procedure; Z90.12 Acquired absence of left breast and nipple; Z79.811 Long term (current) use of aromatase inhibitors; Z85.820 Personal history of malignant melanoma of skin
CPT/HCPCS: 77290; 77300; 77336; 77412; 77417

== ENCOUNTER 2024-11-26 10:18 | Outpatient (RCR) | payer MEDICARE, SELFPAY ==
--- NOTE | 2024-11-26 10:57 | CTCTSUMM_ITS ---
[facility] [address], [place] [address] Treatment Summary Date: 11/26/2024 MR#: [id number] Name: SG ALFREDO : 1950 Dx: C43.30 Referring Physician: (A) Diagnosis: [ICD10] C43.30 Malignant melanoma of unspecified part of face; [ICD10] C78.00 Secondary malignant neoplasm of unspecified lung; [ICD10] C50.212 Malignant neoplasm of upper-inner quadrant of left female breast (B) Aim of Treatment: ??Curative (C) Concomitant Chemotherapy: No (D) Radiation Dates: 10/15/2024 through 11/13/2024 Treatment Prescription 10 E boost Electron boost 15 MeV E- 1,000 cGy 5 200 cGy Approved L breast 2 FIELD SEG Mixed Mode 4,005 cGy 15 267 cGy Approved (E) All theodore were treated using customized MLC Blocks (F) Finding at Discharge: Patient was seen for first follow-up. Appeared well recovering satisfactorily from side effects with good cosmetic result. (G) Discharge Instructions and F/U Appt was given: The patient was also advised to continue follow-up with Dr. Medellin and primary care physician: Cc: Lang Milton MD Electronically signed by: Chepe Villalba MD, SATNAMR 11/26/2024 10:55 AM
== END 2024-12-26 23:59 | disposition home or self-care (01) ==
LOC: SCTC 10:18
PROVIDERS: PCP Physician Assistant; Referring Provider Physician Assistant; Visit Provider Radiology Therapeutic Radiology
DX: C50.212 Malignant neoplasm of upper-inner quadrant of left female breast (principal); C43.30 Malignant melanoma of unspecified part of face; C78.00 Secondary malignant neoplasm of unspecified lung; Z17.0 Estrogen receptor positive status [ER+]; Z17.21 Progesterone receptor positive status; Z17.32 Human epidermal growth factor receptor 2 negative status; Z79.811 Long term (current) use of aromatase inhibitors
CPT/HCPCS: 99213; G0463

== ENCOUNTER → 2024-12-08 | Outpatient (CLI) | payer MEDICARE, SELFPAY ==
--- NOTE | 2024-12-08 15:30 | XR_ITS ---
Examination: Breast ultrasound, unilateral, left complete Date and time of exam: December 08, 2024, 1611 hours INDICATIONS: Diagnosis left breast cancer undergoing radiation therapy, left breast pain 6 months COMPARISON: April 28, 2024, history suspicious masses 5 and 10 o'clock position left breast on the earlier ultrasound Technique: Real-time henderson scale ultrasonographic imaging performed left breast including all 4 quadrants as well as nipple retroareolar and axillary region. Findings: 3:00 nodule lobular margins 6 x 5 mm 5:00 nodule 15 x 12 mm spiculated margins, compared to 9 x 8 mm on the prior study 10:00 nodule lobular margins 12 x 11 mm 10:00 nodule indistinct margins 18 x 16 mm, 11:00 nodule lobular margins 10 x 6 mm IMPRESSION: The 5:00 spiculated nodule 15 x 12 mm compared to 9 x 8 mm on the prior examination The 10:00 nodule measuring 18 x 16 mm has indistinct margins, the appearance should be clinically correlated Recommend 3-month follow-up breast sonography with a radiologist in attendance
--- NOTE | 2024-12-08 16:00 | XR_ITS ---
Examination: Diagnostic digital mammography, unilateral, left Computer aided detection 3-D breast Tomosynthesis, unilateral Date and time of exam: 12/08/2024, 4:42 p.m. Comparisons: February 2024 through April 2024 Indications: Prior surgery June 2021 now with left breast pain Technique: Nonmagnified MLO, CC views of the left breast have been obtained, reconstructed from 3-D Tomosynthesis images. R2 computer aided detection program utilized for evaluation of suspicious masses and/or abnormal calcifications. 3-D Tomosynthesis images obtained. Technologist: Findings: There are scattered areas of fibroglandular density. 1.2 cm oval mass with indistinct margins lower outer quadrant with clip at the anterior edge of this mass. Postoperative changes are seen in the upper inner quadrant with multiple surgical clips. No other focal abnormalities Impression: 1.2 cm oval mass lower outer quadrant with associated post biopsy marker clip. I assume that this lesion has been biopsied with negative results. If this is the case then I recommend 6-month follow-up mammogram and ultrasound. Otherwise recommend immediate reevaluation with spot compression views and ultrasound evaluation with radiologist in attendance. BI-RADS category 3: Probably benign, short term follow-up
== END | disposition home or self-care (01) ==
LOC: CDIM 15:24
PROVIDERS: PCP Physician Assistant; Referring Provider Surgery; Visit Provider Surgery
DX: R92.332 Mammographic heterogeneous density, left breast (principal); N63.23 Unspecified lump in the left breast, lower outer quadrant; N63.22 Unspecified lump in the left breast, upper inner quadrant; C50.212 Malignant neoplasm of upper-inner quadrant of left female breast
CPT/HCPCS: 76641; 77061; 77065; G0279